=== PATIENT | male | born 1960 | race African-American/Black ===

== ENCOUNTER 2020-11-19 13:36 | Emergency (ER) | payer OTHER ==
[~2020-11-19] VITALS: Ht 167.6 cm; Wt 75.8 kg
[2020-11-19] MEDS ORDERED: NAPROSYN500 MG PO (14:14)
[2020-11-19] MEDS ORDERED: CEFDINIR300 MG PO (14:14)
[2020-11-19] MEDS ORDERED: HYDROCHLOROTH12.5 MG (14:22)
== END 2020-11-19 14:33 | disposition home or self-care (01) ==
LOC: FSED 13:49
DX: K08.89 Other specified disorders of teeth and supporting structures (principal); I10 Essential (primary) hypertension
CPT/HCPCS: 99282